=== PATIENT | female | born 1975 | race Caucasian/White ===

== ENCOUNTER 2017-11-13 21:05 | Emergency (ER) | payer MEDICAID ==
[~2017-11-13] VITALS: Ht 165.1 cm; Wt 64.0 kg
[~2017-11-13 21:05] MED LIST: CYCL-1 PO; IBUP-1986 PO; METH-360 PO
[2017-11-13 21:13] VITALS: BP 108/66
[2017-11-13] MEDS ORDERED: ibuprofen tablet 400 MG TABLET PO ONE (22:35)
[2017-11-13] MEDS ORDERED: acetaminophen 325mg tablet PO ONE (22:35)
[2017-11-13] MEDS ORDERED: guaiFENesin ER 600mg tablet PO SCH (22:35)
[2017-11-13] MEDS ORDERED: TAM75C PO (22:54)
== END 2017-11-13 23:14 | disposition home or self-care (01) ==
LOC: ER 21:05
DX: B34.9 Viral infection, unspecified (principal); R07.89 Other chest pain; F17.200 Nicotine dependence, unspecified, uncomplicated
CPT/HCPCS: 71045; 99284

== ENCOUNTER 2019-01-13 17:11 | Emergency (ER) | payer MEDICAID ==
[~2019-01-13] VITALS: Ht 165.1 cm; Wt 66.4 kg
[2019-01-13 17:12] VITALS: BP 155/92
[2019-01-13] MEDS ORDERED: ibuprofen tablet 400 MG TABLET PO ONE (19:00)
[2019-01-13] MEDS ORDERED: AMOX-580 PO (19:04)
== END 2019-01-13 19:18 | disposition home or self-care (01) ==
LOC: ER 17:11
DX: K08.89 Other specified disorders of teeth and supporting structures (principal); H53.8 Other visual disturbances; R51 Headache; Z98.890 Other specified postprocedural states; Z60.2 Problems related to living alone; Z79.2 Long term (current) use of antibiotics; Z79.899 Other long term (current) drug therapy
CPT/HCPCS: 99283

== ENCOUNTER 2019-03-17 17:30 | Emergency (ER) | payer MEDICAID ==
[~2019-03-17] VITALS: Ht 165.1 cm; Wt 66.7 kg
[2019-03-17 18:04] VITALS: BP 147/88
== END 2019-03-17 19:45 | disposition home or self-care (01) ==
LOC: ER 17:30
DX: G89.29 Other chronic pain (principal); H92.01 Otalgia, right ear
CPT/HCPCS: 99281

== ENCOUNTER 2019-09-02 11:53 | Emergency (ER) | payer MEDICAID ==
[~2019-09-02] VITALS: Ht 165.1 cm; Wt 57.0 kg
[2019-09-02 12:21] LABS: CLARITY,URINE SLIGHTLY CLOUDY (Clear); COLOR,URINE YELLOW (Yellow); GLUCOSE, URINE NEGATIVE (Neg); KETONES,URINE NEGATIVE (Neg); LEUKOCYTE ESTERASE ,URINE SMALL (Neg); NITRITES, URINE NEGATIVE (Neg); OCCULT BLOOD,URINE NEGATIVE (Neg); PH,URINE 6.5 (4.8-8.0); PROTEIN,URINE NEGATIVE (Neg); UA COLLECTION TYPE CLN CATCH MIDSTREAM; URINE HCG NEGATIVE (NEG)
[2019-09-02 12:29] LABS: BASOPHILS % (AUTO) 0.4 % (0-1); EOSINOPHILS # (AUTO) 0.2 X10'3 (0-0.9); EOSINOPHILS % (AUTO) 3.4 % (0-6); HEMATOCRIT 42.3 % (35.0-45.0); HEMOGLOBIN 14.7 g/dl (12.0-16.0); LYMPHOCYTES # (AUTO) 1.7 X10'3 (1.1-4.8); LYMPHOCYTES % (AUTO) 31.2 % (21-51); MEAN CORPUSCULAR HEMOGLOBIN 35.2 PG (27.0-31.0); MEAN CORPUSCULAR HGB CONC 34.7 g/dL (33.0-36.5); MEAN CORPUSCULAR VOLUME 101.5 FL (78-98); MEAN PLATELET VOLUME 7.8 FL (7.4-10.4); MONOCYTES # (AUTO) 0.7 X10'3 (0-0.9); MONOCYTES % (AUTO) 12.2 % (2-12); NEUTROPHILS # (AUTO) 2.9 X10'3 (1.8-7.7); NEUTROPHILS % (AUTO) 52.8 % (42-75); PLATELET COUNT 329 X10'3 (140-440); RED BLOOD COUNT 4.17 X10'6 (4.20-5.60); RED CELL DISTRIBUTION WIDTH 12.4 % (11.5-14.5); WHITE BLOOD COUNT 5.5 X10'3 (4.5-11.0)
[2019-09-02 12:32] LABS: ALANINE AMINOTRANSFERASE 31 U/L (12-78); ALBUMIN 3.6 G/DL (3.4-5.0); ALBUMIN/GLOBULIN RATIO 1.1 (1.1-1.5); ALKALINE PHOSPHATASE 92 IU/L (46-116); ANION GAP 9 (8-16); ASPARTATE AMINO TRANSFERASE 26 U/L (10-37); BILIRUBIN,TOTAL 0.2 MG/DL (0.1-1.0); BLOOD UREA NITROGEN 16 MG/DL (7-18); BUN/CREATININE RATIO 24.2 (6.6-38.0); CALCIUM 8.7 MG/DL (8.5-10.1); CHLORIDE 103 MMOL/L (99-107); CREATININE 0.66 MG/DL (0.40-0.90); GLUCOSE 106 MG/DL (70-104); LIPASE 124 U/L (73-393); POTASSIUM 3.7 MMOL/L (3.5-5.1); SODIUM 139 MMOL/L (135-145); TOTAL CARBON DIOXIDE 27.2 MMOL/L (24-32); TOTAL PROTEIN 6.8 G/DL (6.4-8.2); eGFR > 90 ML/MIN
[2019-09-02 12:34] LABS: MUCUS STRANDS FEW /LPF (Neg); SQUAMOUS EPITHELIAL CELL,UR MANY /LPF (FEW)
[2019-09-02 12:35] LABS: BACTERIA,URINE 1+ /HPF (Neg); RBC,URINE 0-2 /HPF (0-2); WBC,URINE 0-4 /HPF (0-4)
[2019-09-02] MEDS ORDERED: PRED20TA PO (12:49)
[2019-09-02 13:09] VITALS: BP 113/73
== END 2019-09-02 13:13 | disposition home or self-care (01) ==
LOC: ER 11:54
DX: L50.8 Other urticaria (principal); T45.0X5A Adverse effect of antiallergic and antiemetic drugs, initial encounter; F17.200 Nicotine dependence, unspecified, uncomplicated; Z79.899 Other long term (current) drug therapy; Y92.89 Other specified places as the place of occurrence of the external cause
CPT/HCPCS: 36415; 80053; 81001; 81025; 83690; 85025; 99283

== ENCOUNTER 2019-11-29 12:15 | Emergency (ER) | payer MEDICAID ==
[~2019-11-29] VITALS: Ht 165.1 cm; Wt 60.0 kg
[2019-11-29] MEDS ORDERED: normal saline 1000ML IV soln IV ONE (12:50)
[2019-11-29] MEDS ORDERED: acetaminophen 325mg tablet PO STA (12:50)
[2019-11-29 13:06] LABS: CLARITY,URINE CLOUDY (Clear); COLOR,URINE YELLOW (Yellow); GLUCOSE, URINE NEGATIVE (Neg); KETONES,URINE NEGATIVE (Neg); LEUKOCYTE ESTERASE ,URINE NEGATIVE (Neg); NITRITES, URINE NEGATIVE (Neg); OCCULT BLOOD,URINE NEGATIVE (Neg); PH,URINE 7.5 (4.8-8.0); PROTEIN,URINE NEGATIVE (Neg); UA COLLECTION TYPE CLN CATCH MIDSTREAM; UROBILINOGEN,URINE 0.2 E.U/dL (0.2-1.0)
[2019-11-29 13:10] LABS: URINE HCG NEGATIVE (NEG)
[2019-11-29 13:14] LABS: BASOPHILS # (AUTO) 0.1 X10'3 (0-0.2); BASOPHILS % (AUTO) 0.5 % (0-1); EOSINOPHILS # (AUTO) 0.1 X10'3 (0-0.9); EOSINOPHILS % (AUTO) 0.8 % (0-6); HEMOGLOBIN 14.3 g/dl (12.0-16.0); LYMPHOCYTES # (AUTO) 2.4 X10'3 (1.1-4.8); LYMPHOCYTES % (AUTO) 21.6 % (21-51); MEAN CORPUSCULAR HEMOGLOBIN 34.3 PG (27.0-31.0); MEAN CORPUSCULAR VOLUME 97.9 FL (78-98); MEAN PLATELET VOLUME 7.4 FL (7.4-10.4); MONOCYTES # (AUTO) 0.8 X10'3 (0-0.9); MONOCYTES % (AUTO) 6.9 % (2-12); NEUTROPHILS # (AUTO) 7.8 X10'3 (1.8-7.7); NEUTROPHILS % (AUTO) 70.2 % (42-75); PLATELET COUNT 444 X10'3 (140-440); RED BLOOD COUNT 4.18 X10'6 (4.20-5.60); RED CELL DISTRIBUTION WIDTH 12.6 % (11.5-14.5); WHITE BLOOD COUNT 11.1 X10'3 (4.5-11.0)
[2019-11-29 13:15] LABS: MUCUS STRANDS FEW /LPF (Neg); SQUAMOUS EPITHELIAL CELL,UR MODERATE /LPF (FEW)
[2019-11-29 13:16] LABS: BACTERIA,URINE FEW /HPF (Neg); RBC,URINE 0-2 /HPF (0-2); WBC,URINE 0-4 /HPF (0-4)
[2019-11-29 13:23] LABS: ALANINE AMINOTRANSFERASE 55 U/L (12-78); ALBUMIN 4.2 G/DL (3.4-5.0); ALBUMIN/GLOBULIN RATIO 1.1 (1.1-1.5); ALKALINE PHOSPHATASE 72 IU/L (46-116); ANION GAP 7 (8-16); ASPARTATE AMINO TRANSFERASE 41 U/L (10-37); BILIRUBIN,TOTAL 0.3 MG/DL (0.1-1.0); BLOOD UREA NITROGEN 16 MG/DL (7-18); BUN/CREATININE RATIO 25.8 (6.6-38.0); CALCIUM 9.4 MG/DL (8.5-10.1); CHLORIDE 105 MMOL/L (99-107); CREATININE 0.62 MG/DL (0.40-0.90); GLUCOSE 96 MG/DL (70-104); POTASSIUM 4.2 MMOL/L (3.5-5.1); SODIUM 140 MMOL/L (135-145); TOTAL CARBON DIOXIDE 28.1 MMOL/L (24-32); TOTAL PROTEIN 7.9 G/DL (6.4-8.2); eGFR > 90 ML/MIN
[2019-11-29] MEDS ORDERED: LORazepam 2 mg/ml vial IV ONE (14:15)
[2019-11-29 16:27] VITALS: BP 127/80
== END 2019-11-29 16:29 | disposition home or self-care (01) ==
LOC: ER 12:15
DX: B34.9 Viral infection, unspecified (principal); R42 Dizziness and giddiness; J02.9 Acute pharyngitis, unspecified; R05 Cough; R51 Headache; M54.9 Dorsalgia, unspecified; Z72.89 Other problems related to lifestyle; Z60.2 Problems related to living alone; Z79.899 Other long term (current) drug therapy
CPT/HCPCS: 36415; 71045; 80053; 81001; 81025; 85025; 87502; 87503; 96361; 96374; 99284; J2060; J7030

== ENCOUNTER 2020-11-07 10:19 | Emergency (ER) | payer MEDICAID ==
[~2020-11-07] VITALS: Ht 165.1 cm; Wt 63.4 kg
[2020-11-07 10:41] VITALS: BP 120/74
--- NOTE | 2020-11-07 11:16 | NUR ---
RANDALL VEGA AT BEDSIDE
[2020-11-07] MEDS ORDERED: PENI500T2 PO (11:23)
[2020-11-07] MEDS ORDERED: HYDROcodone/acetaminophen 5mg/325mg tablet PO ONE (11:25)
[2020-11-07] MEDS ORDERED: ondansetron 4mg rapidly disintigrating tab PO ONE (11:25)
== END 2020-11-07 11:45 | disposition home or self-care (01) ==
LOC: ER 10:19
DX: K08.89 Other specified disorders of teeth and supporting structures (principal); Z72.89 Other problems related to lifestyle; Z60.2 Problems related to living alone; Z79.2 Long term (current) use of antibiotics; Z79.899 Other long term (current) drug therapy
CPT/HCPCS: 99283

== ENCOUNTER 2021-03-10 10:19 | Emergency (ER) | payer MEDICAID ==
[~2021-03-10] VITALS: Ht 165.1 cm; Wt 63.8 kg
--- NOTE | 2021-03-10 12:06 | NUR ---
Patient to CT scan
[2021-03-10] MEDS ORDERED: acetaminophen 325mg tablet PO ONE (12:15)
[2021-03-10 12:33] LABS: BASOPHILS % (AUTO) 0.3 % (0-1); EOSINOPHILS % (AUTO) 0.4 % (0-6); HEMATOCRIT 43.9 % (35.0-45.0); HEMOGLOBIN 15.3 g/dl (12.0-16.0); LYMPHOCYTES # (AUTO) 1.1 X10'3 (1.1-4.8); MEAN CORPUSCULAR HEMOGLOBIN 35.2 PG (27.0-31.0); MEAN CORPUSCULAR HGB CONC 34.8 g/dL (33.0-36.5); MEAN CORPUSCULAR VOLUME 101.1 FL (78-98); MEAN PLATELET VOLUME 7.3 FL (7.4-10.4); MONOCYTES # (AUTO) 0.9 X10'3 (0-0.9); NEUTROPHILS % (AUTO) 79.3 % (42-75); PLATELET COUNT 341 X10'3 (140-440); RED BLOOD COUNT 4.34 X10'6 (4.20-5.60); RED CELL DISTRIBUTION WIDTH 12.8 % (11.5-14.5); WHITE BLOOD COUNT 10.1 X10'3 (4.5-11.0)
[2021-03-10 12:35] LABS: URINE HCG NEGATIVE (NEG)
[2021-03-10 12:40] LABS: CLARITY,URINE CLOUDY (Clear); COLOR,URINE YELLOW (Yellow); GLUCOSE, URINE NEGATIVE (Neg); KETONES,URINE TRACE mg/dl (Neg); LEUKOCYTE ESTERASE ,URINE NEGATIVE (Neg); NITRITES, URINE POSITIVE (Neg); OCCULT BLOOD,URINE NEGATIVE (Neg); PROTEIN,URINE NEGATIVE (Neg); UROBILINOGEN,URINE 0.2 E.U/dL (0.2-1.0)
[2021-03-10 12:41] LABS: UA COLLECTION TYPE CLN CATCH MIDSTREAM
[2021-03-10 12:42] LABS: URINE AMPHETAMINE SCREEN NEGATIVE (Neg); URINE BARBITUATE SCREEN NEGATIVE (Neg); URINE BENZODIAZEPINES SCREEN NEGATIVE (Neg); URINE CANNABINOID SCREEN NEGATIVE (Neg); URINE COCAINE SCREEN NEGATIVE (Neg); URINE METHADONE SCREEN NEGATIVE (Neg); URINE OPIATE SCREEN NEGATIVE (Neg); URINE PHENCYCLIDINE SCREEN NEGATIVE (Neg)
[2021-03-10 12:46] LABS: ALANINE AMINOTRANSFERASE 35 U/L (12-78); ALBUMIN 4.4 G/DL (3.4-5.0); ALBUMIN/GLOBULIN RATIO 1.1 (1.1-1.5); ALKALINE PHOSPHATASE 81 IU/L (46-116); ANION GAP 12 (8-16); ASPARTATE AMINO TRANSFERASE 28 U/L (10-37); BILIRUBIN,TOTAL 0.5 MG/DL (0.1-1.0); BLOOD UREA NITROGEN 16 MG/DL (7-18); BUN/CREATININE RATIO 27.1 (6.6-38.0); CALCIUM 9.1 MG/DL (8.5-10.1); CHLORIDE 103 MMOL/L (99-107); CREATININE 0.59 MG/DL (0.40-0.90); ETHANOL 0.013 GM/DL (0.0-0.010); GLUCOSE 84 MG/DL (70-104); SODIUM 138 MMOL/L (135-145); TOTAL CARBON DIOXIDE 23.3 MMOL/L (24-32); TOTAL PROTEIN 8.3 G/DL (6.4-8.2); eGFR > 90 ML/MIN
[2021-03-10 12:50] LABS: BACTERIA,URINE 3+ /HPF (Neg); MUCUS STRANDS MODERATE /LPF (Neg); SQUAMOUS EPITHELIAL CELL,UR FEW /LPF (FEW)
[2021-03-10 12:53] LABS: RBC,URINE 0-2 /HPF (0-2)
[2021-03-10] MEDS ORDERED: HYDR-3965 PO (13:03)
[2021-03-10] MEDS ORDERED: CEPH250T PO (13:03)
[2021-03-10] MEDS ORDERED: NAPR-56 PO (13:03)
[2021-03-10] MEDS ORDERED: HYDROcodone/acetaminophen 5mg/325mg tablet PO ONE (13:05)
[2021-03-10] MEDS ORDERED: ibuprofen tablet 400 MG TABLET PO ONE (13:10)
--- NOTE | 2021-03-10 13:10 | NUR ---
c/o sacral pain, spoke to Myles Farley-xray not indicated
[2021-03-10 13:25] VITALS: BP 131/87
== END 2021-03-10 13:20 | disposition home or self-care (01) ==
LOC: ER 10:20
DX: S00.03XA Contusion of scalp, initial encounter (principal); S80.211A Abrasion, right knee, initial encounter; S80.212A Abrasion, left knee, initial encounter; M79.18 Myalgia, other site; N39.0 Urinary tract infection, site not specified; R51.9 Headache, unspecified; R68.84 Jaw pain; Z85.3 Personal history of malignant neoplasm of breast; Z72.89 Other problems related to lifestyle; Z60.2 Problems related to living alone; Z79.2 Long term (current) use of antibiotics; Z79.899 Other long term (current) drug therapy; X58.XXXA Exposure to other specified factors, initial encounter; Y93.89 Activity, other specified; Y92.89 Other specified places as the place of occurrence of the external cause; Y99.8 Other external cause status
CPT/HCPCS: 36415; 70450; 80053; 80305; 80320; 81001; 81025; 85025; 87077; 87088; 87186; 99284

== ENCOUNTER 2021-08-20 06:26 | Day surgery (SDC) | payer OTHER, MEDICAID ==
[~2021-08-20] VITALS: Ht 165.1 cm; Wt 66.8 kg
[~2021-08-20 06:26] MED LIST changes: +LIDOcaine 1% 30ml preserv. free vial SQ STA
[2021-08-20] MEDS ORDERED: ALBU18HF2 (06:52)
[2021-08-20] MEDS ORDERED: AMPH20CA3 PO (06:52)
[2021-08-20] MEDS ORDERED: normal saline 1000ml 1,000 ML IV SCH (06:55)
[2021-08-20 07:13] VITALS: BP 120/76
[2021-08-20] MEDS ORDERED: fentaNYL/PF 50MCG/1 ML 2ML syringe ONE ×2 (08:03→08:27)
[2021-08-20] MEDS ORDERED: midazolam 1 mg/ML 2ml injection ONE ×2 (08:03→08:40)
[2021-08-20] MEDS ORDERED: LIDOcaine 1% 30ml preserv. free vial SQ STA (08:44)
[2021-08-20 09:00] VITALS: BP 137/77
[2021-08-20 09:15] VITALS: BP 133/86
[2021-08-20 09:30] VITALS: BP 117/76
[2021-08-20 09:45] VITALS: BP 120/81
[2021-08-20 10:00] VITALS: BP 126/72
== END 2021-08-20 10:10 | disposition home or self-care (01) ==
LOC: SSTAY O 06:26
PROVIDERS: ATTEND Radiology Vascular & Interventional Radiology
DX: E04.1 Nontoxic single thyroid nodule (principal); Z79.899 Other long term (current) drug therapy; Z72.89 Other problems related to lifestyle; F17.290 Nicotine dependence, other tobacco product, uncomplicated
CPT/HCPCS: 10005; 99152; 99153; J2250; J3010; J7030

== ENCOUNTER 2023-04-19 10:39 | Emergency (ER) | payer OTHER, MEDICAID ==
[~2023-04-19] VITALS: Ht 165.1 cm; Wt 63.2 kg
[~2023-04-19 10:39] MED LIST changes: +ALBU18HF2; +AMPH20CA3 PO; -CYCL-1 PO; -IBUP-1986 PO; -LIDOcaine 1% 30ml preserv. free vial SQ STA; -METH-360 PO
[2023-04-19 11:13] LABS: URINE HCG NEGATIVE (NEG)
[2023-04-19 11:18] LABS: CLARITY,URINE CLEAR (Clear); COLOR,URINE YELLOW (Yellow); GLUCOSE, URINE NEGATIVE (Neg); KETONES,URINE NEGATIVE (Neg); LEUKOCYTE ESTERASE ,URINE NEGATIVE (Neg); NITRITES, URINE NEGATIVE (Neg); OCCULT BLOOD,URINE NEGATIVE (Neg); PROTEIN,URINE NEGATIVE (Neg)
[2023-04-19 11:24] LABS: UA COLLECTION TYPE CLN CATCH MIDSTREAM
[2023-04-19 11:28] LABS: BASOPHILS # (AUTO) 0.1 X10'3 (0-0.2); BASOPHILS % (AUTO) 0.8 % (0-1); EOSINOPHILS # (AUTO) 0.1 X10'3 (0-0.9); EOSINOPHILS % (AUTO) 1.2 % (0-6); HEMATOCRIT 42.7 % (35.0-45.0); HEMOGLOBIN 14.4 g/dl (12.0-16.0); LYMPHOCYTES # (AUTO) 1.5 X10'3 (1.1-4.8); LYMPHOCYTES % (AUTO) 14.6 % (21-51); MEAN CORPUSCULAR HEMOGLOBIN 30.7 PG (27.0-31.0); MEAN CORPUSCULAR HGB CONC 33.7 g/dL (33.0-36.5); MEAN CORPUSCULAR VOLUME 91.1 FL (78-98); MEAN PLATELET VOLUME 7.5 FL (7.4-10.4); MONOCYTES # (AUTO) 1.4 X10'3 (0-0.9); MONOCYTES % (AUTO) 13.6 % (2-12); NEUTROPHILS # (AUTO) 7.2 X10'3 (1.8-7.7); NEUTROPHILS % (AUTO) 69.8 % (42-75); PLATELET COUNT 660 X10'3 (140-440); RED BLOOD COUNT 4.69 X10'6 (4.20-5.60); RED CELL DISTRIBUTION WIDTH 14.9 % (11.5-14.5); WHITE BLOOD COUNT 10.3 X10'3 (4.5-11.0)
[2023-04-19 11:40] LABS: ALANINE AMINOTRANSFERASE 59 U/L (12-78); ALBUMIN 2.8 G/DL (3.4-5.0); ALBUMIN/GLOBULIN RATIO 0.5 (1.1-1.5); ALKALINE PHOSPHATASE 924 IU/L (46-116); ANION GAP 8 (8-16); ASPARTATE AMINO TRANSFERASE 114 U/L (10-37); BILIRUBIN,TOTAL 1.2 MG/DL (0.1-1.0); BLOOD UREA NITROGEN 8 MG/DL (7-18); CALCIUM 9.1 MG/DL (8.5-10.1); CHLORIDE 95 MMOL/L (99-107); CREATININE 0.73 MG/DL (0.40-0.90); GLUCOSE 103 MG/DL (70-104); LIPASE 183 U/L (73-393); SODIUM 133 MMOL/L (135-145); TOTAL CARBON DIOXIDE 29.7 MMOL/L (24-32); TOTAL PROTEIN 8.2 G/DL (6.4-8.2); eGFR 86 ML/MIN
[2023-04-19] MEDS ORDERED: NADO20TA36 PO (13:19)
[2023-04-19] MEDS ORDERED: FURO-150 PO (13:19)
[2023-04-19] MEDS ORDERED: SPIR25TA PO (13:19)
[2023-04-19 13:37] VITALS: BP 124/82
== END 2023-04-19 13:39 | disposition home or self-care (01) ==
LOC: ER 10:39
DX: K70.30 Alcoholic cirrhosis of liver without ascites (principal); R11.10 Vomiting, unspecified; R14.0 Abdominal distension (gaseous); Z85.3 Personal history of malignant neoplasm of breast; Z72.89 Other problems related to lifestyle; Z79.899 Other long term (current) drug therapy
CPT/HCPCS: 76700; 80053; 81003; 81025; 83690; 85025; 99284

== ENCOUNTER 2023-06-07 10:06 | Emergency (ER) | payer OTHER, MEDICAID ==
[~2023-06-07] VITALS: Ht 165.1 cm; Wt 68.2 kg
[~2023-06-07 10:06] MED LIST changes: +FURO-150 PO; +NADO20TA36 PO; +SPIR25TA PO
[2023-06-07 10:07] VITALS: TEMP 97.8
[2023-06-07 10:59] LABS: BASOPHILS % (AUTO) 1.1 % (0-1); EOSINOPHILS % (AUTO) 1.7 % (0-6); HEMATOCRIT 39.1 % (35.0-45.0); HEMOGLOBIN 13.2 g/dl (12.0-16.0); LYMPHOCYTES # (AUTO) 0.4 X10'3 (1.1-4.8); LYMPHOCYTES % (AUTO) 34.1 % (21-51); MEAN CORPUSCULAR HEMOGLOBIN 30.6 PG (27.0-31.0); MEAN CORPUSCULAR HGB CONC 33.8 g/dL (33.0-36.5); MEAN CORPUSCULAR VOLUME 90.6 FL (78-98); MONOCYTES # (AUTO) 0.2 X10'3 (0-0.9); MONOCYTES % (AUTO) 16.5 % (2-12); NEUTROPHILS # (AUTO) 0.5 X10'3 (1.8-7.7); NEUTROPHILS % (AUTO) 46.6 % (42-75); PLATELET COUNT 187 X10'3 (140-440); RED BLOOD COUNT 4.32 X10'6 (4.20-5.60); RED CELL DISTRIBUTION WIDTH 16.2 % (11.5-14.5)
[2023-06-07 11:05] LABS: ALANINE AMINOTRANSFERASE 53 U/L (12-78); ALBUMIN 1.9 G/DL (3.4-5.0); ALBUMIN/GLOBULIN RATIO 0.4 (1.1-1.5); ALKALINE PHOSPHATASE 828 IU/L (46-116); ANION GAP 8 (8-16); ASPARTATE AMINO TRANSFERASE 94 U/L (10-37); BILIRUBIN,TOTAL 1.8 MG/DL (0.1-1.0); BLOOD UREA NITROGEN 8 MG/DL (7-18); BUN/CREATININE RATIO 15.7 (10.0-20.0); CALCIUM 8.5 MG/DL (8.5-10.1); CHLORIDE 92 MMOL/L (99-107); CREATININE 0.51 MG/DL (0.40-0.90); GLUCOSE 103 MG/DL (70-104); LIPASE 69 U/L (73-393); POTASSIUM 4.4 MMOL/L (3.5-5.1); SODIUM 128 MMOL/L (135-145); TOTAL CARBON DIOXIDE 27.9 MMOL/L (24-32); TOTAL PROTEIN 6.8 G/DL (6.4-8.2); eCRCL 124 ML/MIN; eGFR > 90 ML/MIN
[2023-06-07 11:21] LABS: ANISOCYTOSIS 1+; PLATELET ESTIMATE NORMAL; TOTAL CELLS COUNTED 50
[2023-06-07] MEDS ORDERED: normal saline 500ml IV soln 500 ML IV ONE (11:35)
[2023-06-07] MEDS ORDERED: HYDROmorphone 1 mg/ml syringe IM ONE (11:35)
[2023-06-07] MEDS ORDERED: ondansetron 4mg rapidly disintigrating tab PO ONE (11:35)
--- NOTE | 2023-06-07 13:08 | NUR ---
DR DUEÑAS AT BEDSIDE AND PERFORMED WOUND CARE. PER DR DUEÑAS RN MAY ORD AND ADMIN 1 MG ATIVAN PO AND NO NEED FOR THE IV AND BOLUS OF NS.
[2023-06-07] MEDS ORDERED: LORazepam 1 MG tablet PO ONE (13:10)
--- NOTE | 2023-06-07 13:20 | NUR ---
RN APPLIED ABD PAD AND PAPER TAPE TO WOUND AFTER DR DUEÑAS PROVIDED WOUND CARE.
[2023-06-07] MEDS ORDERED: FURO-149 PO (14:02)
[2023-06-07] MEDS ORDERED: SPIR50TA5 PO (14:02)
--- NOTE | 2023-06-07 14:07 | NUR ---
RN ASSISTED DR DUEÑAS WITH DISCHARGE PAPERWORK AND WILL NOW DISCHARGE PT.
--- NOTE | 2023-06-07 14:19 | NUR ---
RN ATTEMPTED TO DISCHARGE PT AND PT REFUSES TO BE DISCHARGED AT THIS TIME STATING THAT SHE IS HAVING SO MUCH PAIN AND CAN NOT SIT ON TOILET TO PEE. RN ATTEMPTED TO HELP HER SIT AND PEE AND SHE WAS UNABLE TO. RN WAS PRESENT AT BEDSIDE WHEN DR DUEÑAS CONSULTED WITH PT AND PT REFUSED TO HAVE FLUID REMOVED FROM HER ABDOMEN STATING THAT SHE INSISTED TO BE PUT UNDER TO HAVE PROCEDURE DONE. PT NOW STATING THAT SHE DOES NOT WANT TO BE DISCHARGED AND WILL HAVE FLUID REMOVED IF THE GIVES HER ATIVAN IV. RN WILL NOTIFY DR DUEÑAS.
--- NOTE | 2023-06-07 15:10 | NUR ---
PT REFUSED FOR LAB TO COLLECT BLOOD. RN WILL OBTAIN IV AND ATTEMPT TO COLLECT BLOOD AT THAT TIME. PER DR DUEÑAS PT WILL NOT BE DISCHARGED AT THIS TIME/RN TO COLLECT LIST OF PT MEDS THAT PT TOOK LAST WEEK.
--- NOTE | 2023-06-07 16:08 | NUR ---
RN ATTEMPTING TO OBTAIN IV. PT INSISTED ON USING RESTROOM INSTEAD OF BSC. 2 ED TECHS HELPED HER TO THE RESTROOM. PT WAS ABLE TO URINATE AND IS NOW BACK IN BED. RN WILL CONT TO TRY TO OBTAIN IV AT THIS TIME.
--- NOTE | 2023-06-07 16:47 | NUR ---
PT FRIEND PEREZ STATED PT HAS NOT EATEN. RN CK PT SUGAR RESULT 94.
[2023-06-07 17:40] VITALS: BP 134/88; PULSE 80; O2SAT 97
--- NOTE | 2023-06-07 18:30 | NUR ---
RN UPDATED DR DUEÑAS THAT PT STATES THAT SHE WANTS TO BE DISCHARGED BUT WANTS TO KNOW IF ADRÁIN CATH WAS RESCHEDULED THAT WAS SUPPOSED TO BE INSERTED TODAY AND SHE STATES THAT SHE WAS SUPPOSED TO GET IT DONE AT [facility]. PER DR DUEÑAS PT CAN BE DISCHARGED WITH RX FOR PAIN MED AND SHE WILL NEED TO CONTACT HER DOCTOR TO RESCHEDULED ADRIÁN CATH PLACEMENT. PT FRIEND PEREZ PROVIDED # TO CONTACT TO SCHEDULE. THIS RN ATTEMPTED TO CALL # AND CHECKED WITH THE COLOR COATER TO SEE IF THE NUMBER WAS AFFILIATED WITH THIS HOSPITAL AND PER THE COLOR COATER THE NUMBER IS NOT. RN NOTIFIED ONCOMING DELIO KLEIN OF THIS AND THE # TO CALL [phone] OPTION #3. LATOYA WILL NOTIFY DR DUEÑAS AND COMPLETE DISCHARGE OR HELP WITH ADMISSION.
[2023-06-07] MEDS ORDERED: morphine 2 MG/ML inj. syringe IV ONE (18:50)
[2023-06-07] MEDS ORDERED: PER5325T PO ×2 (19:15)
[2023-06-07 19:16] VITALS: RESP 17
--- NOTE | 2023-06-07 19:31 | NUR ---
IV DC'D PT BEING DISCHARGED DRESSING APPLIED
--- NOTE | 2023-06-07 19:31 | NUR ---
PT ESCORTED OUT TO CAR IN WHEELCHAIR WITH TECH
== END 2023-06-07 19:32 | disposition home or self-care (01) ==
LOC: ER 10:07
DX: K70.30 Alcoholic cirrhosis of liver without ascites (principal); Z79.899 Other long term (current) drug therapy
CPT/HCPCS: 36415; 71045; 80053; 82948; 83690; 84145; 85007; 85025; 96372; 96374; 99285; J1170; J2270; J7030; J7040; A6253; A6449

== ENCOUNTER 2023-06-10 11:05 | Day surgery (SDC) | payer OTHER, MEDICAID ==
[~2023-06-10] VITALS: Ht 165.1 cm; Wt 65.8 kg
[~2023-06-10 11:05] MED LIST changes: +FURO-149 PO; -FURO-150 PO; +PER5325T PO; -SPIR25TA PO; +SPIR50TA5 PO
[2023-06-10 11:30] VITALS: BP 114/63; PULSE 89; RESP 18; TEMP 98; O2SAT 99
[2023-06-10] MEDS ORDERED: LACT10SO3 PO (12:08)
[2023-06-10] MEDS ORDERED: LEVO100T9 PO (12:08)
[2023-06-10] MEDS ORDERED: TRAM50TA2 PO (12:08)
[2023-06-10] MEDS ORDERED: ONDA-104 PO (12:08)
[2023-06-10] MEDS ORDERED: OXYC5TAB2 PO (12:08)
[2023-06-10] MEDS ORDERED: albumin 25% 100mL bottle x 1 IV PRN (12:10)
[2023-06-10] MEDS ORDERED: OXYC-145 PO (12:13)
[2023-06-10] MEDS ORDERED: SPIR50TA5 PO (12:14)
[2023-06-10] MEDS ORDERED: midazolam 1 mg/ML 2ml injection ONE (13:53)
[2023-06-10] MEDS ORDERED: fentaNYL/PF 50MCG/1 ML 2ML syringe ONE (13:53)
[2023-06-10] MEDS ORDERED: heparin sodium, porcine/PF 100unit/ml 5ML syringe ONE (13:53)
[2023-06-10 15:00] VITALS: BP 121/84; PULSE 81; RESP 16; O2SAT 98
[2023-06-10 15:15] VITALS: BP 125/60; PULSE 80; RESP 14; O2SAT 98
[2023-06-10 15:30] VITALS: BP 133/86; PULSE 82; RESP 15; O2SAT 98
[2023-06-10 15:45] VITALS: BP 126/77; PULSE 83; RESP 18; O2SAT 96
[2023-06-10 16:00] VITALS: BP 115/96; PULSE 86; RESP 17; O2SAT 95
== END 2023-06-10 16:35 | disposition home or self-care (01) ==
LOC: SSTAY O 11:05
PROVIDERS: ATTEND Radiology Diagnostic Radiology
DX: C50.012 Malignant neoplasm of nipple and areola, left female breast (principal); K70.31 Alcoholic cirrhosis of liver with ascites; C22.9 Malignant neoplasm of liver, not specified as primary or secondary; F41.9 Anxiety disorder, unspecified; Z98.890 Other specified postprocedural states; Z90.12 Acquired absence of left breast and nipple; F10.20 Alcohol dependence, uncomplicated; Z79.899 Other long term (current) drug therapy
CPT/HCPCS: 36561; 76937; 77001; 99152; C1769; C1788; J1642; J2250; J3010; J7030; 76942; 99153; A4620; A6258; A6449; C1894

== ENCOUNTER → 2023-06-26 | Emergency (ER) | payer OTHER, MEDICAID ==
[~2023-06-26] VITALS: Ht 165.1 cm; Wt 54.5 kg
[~2023-06-26] MED LIST changes: -FURO-149 PO; +LACT10SO3 PO; +LEVO100T9 PO; -NADO20TA36 PO; +ONDA-104 PO; +OXYC-145 PO; +OXYC5TAB2 PO; -PER5325T PO; +TRAM50TA2 PO
[2023-06-26 01:35] VITALS: BP 153/98; PULSE 110; RESP 16; TEMP 98.1; O2SAT 99
--- NOTE | 2023-06-26 01:47 | NUR ---
pt needs drainage bags. Urostomy bags given.
== END | disposition home or self-care (01) ==
LOC: ER 00:01
DX: R18.8 Other ascites (principal); Z85.3 Personal history of malignant neoplasm of breast; Z79.899 Other long term (current) drug therapy; Z72.89 Other problems related to lifestyle
CPT/HCPCS: 99281; A4421

== ENCOUNTER 2023-08-02 06:16 | Day surgery (SDC) | payer OTHER, MEDICAID ==
[~2023-08-02] VITALS: Ht 165.1 cm; Wt 65.4 kg
[2023-08-02 06:40] VITALS: BP 112/75; PULSE 100; RESP 16; TEMP 99; O2SAT 97
[2023-08-02] MEDS ORDERED: albumin 25% 100mL bottle x 1 IV PRN (06:40)
[2023-08-02] MEDS ORDERED: normal saline 1000ml 1,000 ML IV PRN (06:40)
[2023-08-02] MEDS ORDERED: POTA8TAB69 PO (07:02)
[2023-08-02] MEDS ORDERED: PRED5TAB PO (07:02)
[2023-08-02] MEDS ORDERED: FURO20TA4 PO (07:02)
[2023-08-02] MEDS ORDERED: TRAZ-251 PO (07:02)
[2023-08-02] MEDS ORDERED: POLY119P2 PO (07:02)
[2023-08-02] MEDS ORDERED: BACL-11 PO (07:02)
--- NOTE | 2023-08-02 08:15 | NUR ---
Limited US only, not enough fluid to safely proceed with the procedure per Leo Kelly.
[2023-08-09] MEDS ORDERED: CEPH500C2 PO (09:25)
== END 2023-08-02 08:40 | disposition home or self-care (01) ==
LOC: SSTAY O 06:16
PROVIDERS: ATTEND Radiology Vascular & Interventional Radiology
DX: K70.31 Alcoholic cirrhosis of liver with ascites (principal); Z53.8 Procedure and treatment not carried out for other reasons; F41.9 Anxiety disorder, unspecified; C22.8 Malignant neoplasm of liver, primary, unspecified as to type; Z98.890 Other specified postprocedural states; Z90.12 Acquired absence of left breast and nipple; Z85.3 Personal history of malignant neoplasm of breast; F10.20 Alcohol dependence, uncomplicated; Z79.899 Other long term (current) drug therapy
CPT/HCPCS: 76705; A6258; A6449; C1729

== ENCOUNTER 2023-08-05 15:57 | Inpatient (IN) | payer OTHER, MEDICAID ==
[~2023-08-05] VITALS: Ht 165.1 cm; Wt 64.1 kg
[~2023-08-05 15:57] MED LIST changes: +BACL-11 PO; +FURO20TA4 PO; -OXYC-145 PO; +POLY119P2 PO; +POTA8TAB69 PO; +PRED5TAB PO; -TRAM50TA2 PO; +TRAZ-251 PO
[2023-08-05] MEDS ORDERED: potassium Cl 20 mEq SR tablet PO STA (16:27)
[2023-08-05] MEDS ORDERED: magnesium oxide 400mg tablet PO ONE (16:30)
[2023-08-05] MEDS ORDERED: Potassium Cl inj 40 MEQ in normal saline 250ml IV soln 250 ML IV ONE (16:30)
[2023-08-05] MEDS ORDERED: potassium Cl 40MEQ/1/2NS 520ml 520 ML IV ONE (16:40)
[2023-08-05] MEDS ORDERED: LIDOcaine/PRILOcaine 5gm cream TP ONE (16:45)
[2023-08-05 18:24] LABS: BASOPHILS # (AUTO) 0.1 X10'3 (0-0.2); BASOPHILS % (AUTO) 1.2 % (0-1); EOSINOPHILS # (AUTO) 0.1 X10'3 (0-0.9); EOSINOPHILS % (AUTO) 1.5 % (0-6); HEMATOCRIT 32.1 % (35.0-45.0); HEMOGLOBIN 10.8 g/dl (12.0-16.0); LYMPHOCYTES # (AUTO) 0.9 X10'3 (1.1-4.8); LYMPHOCYTES % (AUTO) 15.1 % (21-51); MEAN CORPUSCULAR HEMOGLOBIN 30.2 PG (27.0-31.0); MEAN CORPUSCULAR HGB CONC 33.8 g/dL (33.0-36.5); MEAN CORPUSCULAR VOLUME 89.2 FL (78-98); MEAN PLATELET VOLUME 6.9 FL (7.4-10.4); MONOCYTES # (AUTO) 0.3 X10'3 (0-0.9); MONOCYTES % (AUTO) 5.1 % (2-12); NEUTROPHILS # (AUTO) 4.4 X10'3 (1.8-7.7); NEUTROPHILS % (AUTO) 77.1 % (42-75); PLATELET COUNT 428 X10'3 (140-440); RED BLOOD COUNT 3.59 X10'6 (4.20-5.60); RED CELL DISTRIBUTION WIDTH 17.8 % (11.5-14.5); WHITE BLOOD COUNT 5.7 X10'3 (4.5-11.0)
[2023-08-05 18:39] LABS: ALANINE AMINOTRANSFERASE 39 U/L (12-78); ALBUMIN 2.2 G/DL (3.4-5.0); ALBUMIN/GLOBULIN RATIO 0.5 (1.1-1.5); ALKALINE PHOSPHATASE 529 IU/L (46-116); ANION GAP 8 (8-16); ASPARTATE AMINO TRANSFERASE 32 U/L (10-37); BILIRUBIN,TOTAL 0.7 MG/DL (0.1-1.0); BLOOD UREA NITROGEN 9 MG/DL (7-18); CALCIUM 8.4 MG/DL (8.5-10.1); CHLORIDE 98 MMOL/L (99-107); CREATININE 0.45 MG/DL (0.40-0.90); GLUCOSE 156 MG/DL (70-104); MAGNESIUM 1.8 MG/DL (1.5-2.4); SODIUM 136 MMOL/L (135-145); TOTAL CARBON DIOXIDE 30.2 MMOL/L (24-32); TOTAL PROTEIN 6.5 G/DL (6.4-8.2); eCRCL 141 ML/MIN; eGFR > 90 ML/MIN
[2023-08-05 18:43] LABS: POTASSIUM 2.6 MMOL/L (3.5-5.1)
[2023-08-05] MEDS ORDERED: HYDROcodone/acetaminophen 10/325mg tab PO ONE (19:10)
[2023-08-05] MEDS ORDERED: magnesium 2GM in 50ml NS 50 ML IV ONE (19:15)
--- NOTE | 2023-08-05 20:01 | NUR ---
recieved oral report from RN, pt is a&o x4, pt is a good historian, family at bedside. R chest port accessed. Pt connected to tele monitor. Pt presents c bilater rashes to the hands and FA. Pt is also c/o mouthsores. Hx of chemo.
[2023-08-05] MEDS ORDERED: potassium Cl 40MEQ/1/2NS 520ml 520 ML IV PRN (20:05)
[2023-08-05] MEDS ORDERED: acetaminophen 325mg tablet PO PRN (20:05)
[2023-08-05] MEDS ORDERED: ondansetron/PF 4mg/2ml inj IV PRN (20:05)
[2023-08-05] MEDS ORDERED: magnesium 2GM in 50ml NS 50 ML IV PRN (20:05)
[2023-08-05] MEDS ORDERED: IOHEXOL 12MG/ML oral solution 500 ML BOTTLE PO ONE (20:05)
[2023-08-05] MEDS ORDERED: potassium Cl 20 mEq SR tablet PO PRN ×2 (20:05)
[2023-08-05] MEDS ORDERED: ipratropium/albuterol 3ml nebule NEB PRN (20:05)
[2023-08-05] MEDS ORDERED: mag hydrox/Alum hydrox/simeth 30ml oral suspension PO PRN (20:05)
[2023-08-05] MEDS ORDERED: magnesium hydroxide 30ml (MOM) UD suspension PO PRN (20:05)
[2023-08-05] MEDS ORDERED: nicotine 14mg patch - 24hr TD SCH (20:05)
[2023-08-05] MEDS ORDERED: magnesium 4gm in 100ml NS 100 ML IV PRN (20:05)
[2023-08-05] MEDS ORDERED: albuterol 2.5 MG/3 ML nebule NEB PRN (20:05)
[2023-08-05 20:42] VITALS: PULSE 89; RESP 16; O2SAT 95
[2023-08-05 20:52] VITALS: PULSE 92; RESP 14
[2023-08-05] MEDS ORDERED: LIDOCAINE 5% OINTMENT 35GM TP STA (21:12)
[2023-08-05] MEDS ORDERED: LIDOcaine/epinephrine/tetracaine TOPICAL sol 3 ML syringe TOP ONE (21:20)
--- NOTE | 2023-08-05 21:55 | NUR ---
Patient discussing leaving AMA with her mom, states she "didn't know she was staying all night". Cha at bedside, explained to patient importance and need to stay. Patient and mother in room arguing over whether patient will leave AMA or stay at hospital to recieve Potassium.
--- NOTE | 2023-08-05 22:20 | NUR ---
Patient in room ORTHO 4024. I have received report from DELIO Castillo and had the opportunity to ask questions and assume patient care.
[2023-08-05] MEDS ORDERED: iohexol 300mg/ml 100ml inj. ONE (23:07)
--- NOTE | 2023-08-05 23:50 | NUR ---
pt arrived via gurney. transferred to bed. oriented to room. call light in reach
[2023-08-05 23:59] VITALS: BP 131/80; PULSE 92; RESP 16; TEMP 97.4; O2SAT 98
[2023-08-06 00:15] VITALS: RESP 16; O2SAT 98
[2023-08-06] MEDS ORDERED: traZODone 50mg tablet PO ONE (01:20)
[2023-08-06] MEDS: oxyCODONE IR 5mg (immed. release) tablet PO PRN ×2 (01:52→05:58)
[2023-08-06] MEDS: potassium Cl 20mEq in NS 1,000 ML IV SCH ×2 (01:56→06:05)
[2023-08-06 06:00] VITALS: BP 103/59; PULSE 91; RESP 16; TEMP 97.7; O2SAT 98
[2023-08-06] MEDS ORDERED: oxyCODONE IR 5mg (immed. release) tablet PO PRN (06:25)
[2023-08-06] MEDS ORDERED: non-formulary drug (Ondansetron HCl 1 TAB) PO PRN (06:25)
[2023-08-06 06:45] LABS: BASOPHILS % (AUTO) 0.8 % (0-1); EOSINOPHILS # (AUTO) 0.1 X10'3 (0-0.9); EOSINOPHILS % (AUTO) 1.5 % (0-6); HEMOGLOBIN 9.2 g/dl (12.0-16.0); LYMPHOCYTES # (AUTO) 0.9 X10'3 (1.1-4.8); LYMPHOCYTES % (AUTO) 14.6 % (21-51); MEAN CORPUSCULAR HEMOGLOBIN 30.6 PG (27.0-31.0); MEAN CORPUSCULAR HGB CONC 34.2 g/dL (33.0-36.5); MEAN CORPUSCULAR VOLUME 89.4 FL (78-98); MEAN PLATELET VOLUME 7.7 FL (7.4-10.4); MONOCYTES # (AUTO) 0.8 X10'3 (0-0.9); MONOCYTES % (AUTO) 12.4 % (2-12); NEUTROPHILS # (AUTO) 4.4 X10'3 (1.8-7.7); NEUTROPHILS % (AUTO) 70.7 % (42-75); PLATELET COUNT 387 X10'3 (140-440); RED BLOOD COUNT 3.02 X10'6 (4.20-5.60); RED CELL DISTRIBUTION WIDTH 17.4 % (11.5-14.5); WHITE BLOOD COUNT 6.2 X10'3 (4.5-11.0)
--- NOTE | 2023-08-06 06:45 | NUR ---
Patient in room ORTHO 4024. I have received report from Gabi and had the opportunity to ask questions and assume patient care.
--- NOTE | 2023-08-06 06:50 | NUR ---
Problems reprioritized. Patient report given, questions answered & plan of care reviewed with DELIO Teresa.
[2023-08-06 07:07] LABS: ALANINE AMINOTRANSFERASE 43 U/L (12-78); ALBUMIN 1.8 G/DL (3.4-5.0); ALBUMIN/GLOBULIN RATIO 0.5 (1.1-1.5); ALKALINE PHOSPHATASE 596 IU/L (46-116); ANION GAP 6 (8-16); ASPARTATE AMINO TRANSFERASE 48 U/L (10-37); BILIRUBIN,TOTAL 0.5 MG/DL (0.1-1.0); BLOOD UREA NITROGEN 8 MG/DL (7-18); BUN/CREATININE RATIO 22.9 (10.0-20.0); CALCIUM 8.2 MG/DL (8.5-10.1); CHLORIDE 100 MMOL/L (99-107); CREATININE 0.35 MG/DL (0.40-0.90); GLUCOSE 114 MG/DL (70-104); MAGNESIUM 1.7 MG/DL (1.5-2.4); POTASSIUM 3.3 MMOL/L (3.5-5.1); SODIUM 134 MMOL/L (135-145); TOTAL CARBON DIOXIDE 28.2 MMOL/L (24-32); TOTAL PROTEIN 5.5 G/DL (6.4-8.2); eCRCL 181 ML/MIN; eGFR > 90 ML/MIN
[2023-08-06 07:15] VITALS: RESP 16; O2SAT 98
--- NOTE | 2023-08-06 07:18 | NUR ---
Re: Yee in [id number], patient wishes to leave AMA [facility], just adriana Teresa [id number]
[2023-08-06] MEDS ORDERED: heparin sodium, porcine/PF 100unit/ml 5ML syringe IV ONE (07:55)
[2023-08-06] MEDS ORDERED: spironolactone 50 MG tablet PO SCH (08:00)
[2023-08-06] MEDS ORDERED: docusate sod 100mg capsule PO SCH (08:00)
[2023-08-06] MEDS ORDERED: K and/or MAG REPLACEMENT MC SCH (08:00)
[2023-08-06] MEDS ORDERED: levoTHYROXINE 100mcg tablet PO SCH (08:00)
[2023-08-06] MEDS ORDERED: furosemide 20MG tablet PO SCH (08:00)
[2023-08-06] MEDS ORDERED: dextroamphetamine/amphetamine ER 20 MG CAP.SR.24H PO SCH (08:00)
[2023-08-06] MEDS ORDERED: predniSONE 5mg tablet PO SCH (08:00)
[2023-08-06] MEDS ORDERED: non-formulary drug (Polyethylene Glycol 3350 (Miralax) 17 GM) PO SCH (08:00)
--- NOTE | 2023-08-06 08:03 | NUR ---
Spoke with hospitalist via phone regarding patient wishing to AMA by 07:45. Patient stated she has a chemo appointment at 10:00. Patient then requested her port be de-accessed so she could leave. Port was accessed in the ED and not utilized on this floor. Hospitalist came to patient's room and assessed the patient. Patient is getting dressed, filteration operator will de-access her port.
[2023-08-06] MEDS ORDERED: NICO-631 TD ×2 (08:04)
--- NOTE | 2023-08-06 08:20 | NUR ---
Patient was able to dress herself and gather her belongings. Patient was wheeled downstairs by the rim fire charger operator, to her vehicle. Patient stated she felt fine to drive to her appointment.
--- NOTE | 2023-08-06 08:20 | NUR ---
Deaccessed kacie cath to R chest per protocol with 20ml NS flush and 5ml 100unit/ml Heparin flush. Dc'd cath intact. Pt tolerated well.
[2023-08-06] MEDS ORDERED: enoxaparin 40mg/0.4ml syringe SQ SCH (20:00)
[2023-08-06] MEDS ORDERED: traZODone 50mg tablet PO SCH ×2 (21:00)
[2023-08-06] MEDS ORDERED: non-formulary drug (Baclofen 1 TAB) PO SCH (21:00)
[2023-08-09] MEDS ORDERED: CEPH500C2 PO (09:25)
== END 2023-08-06 08:25 | disposition home or self-care (01) | DRG 641 ==
LOC: ER 15:58 → ED HOLD 20:14 → ORTHO 4S 23:50
PROVIDERS: ADMIT Family Medicine; ATTEND Family Medicine
PROC: BW211ZZ Computerized Tomography (CT Scan) of Abdomen and Pelvis using Low Osmolar Contrast (ICD-10-PCS; principal; 2023-08-06)
DX: E87.6 Hypokalemia (principal); R18.8 Other ascites; E03.9 Hypothyroidism, unspecified; F17.210 Nicotine dependence, cigarettes, uncomplicated; K59.00 Constipation, unspecified; R14.0 Abdominal distension (gaseous); R21 Rash and other nonspecific skin eruption; L53.9 Erythematous condition, unspecified; T45.1X5A Adverse effect of antineoplastic and immunosuppressive drugs, initial encounter; Z80.3 Family history of malignant neoplasm of breast; Z80.8 Family history of malignant neoplasm of other organs or systems; Z82.0 Family history of epilepsy and other diseases of the nervous system; Z85.3 Personal history of malignant neoplasm of breast
CPT/HCPCS: 36415; 74177; 80053; 83735; 85025; 87081; 93005; 94640; 94760; 99285; A6258; G0378; J1642; J3480; J3490; Q9967